=== PATIENT | female | born 1965 | race Caucasian/White ===

== ENCOUNTER 2016-05-30 15:56 | Emergency (ER) | payer OTHER ==
[~2016-05-30] VITALS: Ht 170.2 cm; Wt 66.2 kg
--- NOTE | 2016-05-30 17:11 | ED GENERAL ADULT ---
History of Present Illness General Chief Complaint: General Adult Stated Complaint: PTNOT WELL FOR 1XWK,STOMACH PAIN ,CHEST PAIN,FEVER Source: patient, old records Exam Limitations: no limitations Vital Signs & Intake/Output Vital Signs & Intake/Output Vital Signs Date Time Temp Pulse Resp B/P Pulse O2 O2 Flow FiO2 Ox Delivery Rate 05/31 1947 87 134/80 05/30 1826 98.7 89 16 136/84 97 Room Air 05/30 1602 100.4 97 20 151/94 97 Room Air Allergies Coded Allergies: No Known Allergies (05/30/16) Reconcile Medications Diazepam 10 MG TABLET 2-3 TAB PO DAILY PRN ANXIETY (Reported) Dicyclomine Hydrochloride (Bentyl) 10 MG CAPSULE 1 CAP PO TID PRN abdominal pain Meloxicam 15 MG TABLET 1 TAB PO DAILY PAIN/INFLAMMATION (Reported) Pantoprazole Sodium (Protonix) 40 MG TABLET.DR 1 TAB PO DAILY upper abdominal pain Triage Note: TRIAGE: PT TO ER C/C PAIN TO L CHEST, BACK, MID CHEST SINCE SUNDAY. REPORTS CONSTANT PRESSURE SINCE ONSET WITH INTERMITTENT "WAVES" OF MORE SEVERE PAIN. ALSO COMPLAINS OF PAIN TO LLQ AND ACROSS LOW ABD. DENIES SOB, DENIES DIAPHORESIS, +NAUSEA, -VOMITING, -DIARRHEA. LNBM YESTERDAY. DENIES URINARY S/S. SENT TO [place] FOR EKG. Triage Nurses Notes Reviewed? yes HPI: Patient is a 50-year-old female presents complaining of epigastric pain and diffuse lower abdominal pain. Pain for approximately 5-6 days. Pain in the upper abdomen as a fullness sensation, no exacerbating or alleviating factors. Pain is currently moderate, has been severe at times. No improvement with Tylenol or Motrin. Patient has also tried taking Tums and started taking Nexium yesterday with no improvement. Pain in the lower abdomen is exacerbated by walking. Fevers noticed today. Positive nausea. Pain does not appear to change with eating. Denies vomiting or diarrhea. (AMEE PRADHAN) Past History Travel History Traveled to [place] past 21 day No Medical History Any Pertinent Medical History? 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 No (AMEE PRADHAN) Review of Systems Review of Systems Constitutional: Reports: fever. Denies: chills. EENTM: Reports: no symptoms. Respiratory: Denies: cough, short of breath. Cardiovascular: Reports: no symptoms. GI: Reports: see HPI. Genitourinary: Denies: dysuria, hematuria, pain. Musculoskeletal: Reports: no symptoms. Skin: Reports: no symptoms. Neurological/Psychological: Reports: no symptoms. Hematologic/Endocrine: Reports: no symptoms. Immunologic/Allergic: Reports: no symptoms. (AMEE PRADHAN) Physical Exam Physical Exam General Appearance: well developed/nourished, alert, awake Head: atraumatic, normal appearance Eyes: Bilateral: normal appearance, PERRL, EOMI. Ears, Nose, Throat: normal pharynx, normal ENT inspection, hearing grossly normal Neck: normal inspection, supple, full range of motion Respiratory: normal breath sounds, chest non-tender, no respiratory distress Cardiovascular: regular rate/rhythm Gastrointestinal: normal bowel sounds, soft, MILD EPIGASTRIC TENDERNESS, NEGATIVE Patel SIGN. pOSITIVE LEFT LOWER QUADRANT TENDERNESS. nEGATIVE mCbURNEY'S POINT TENDERNESS. Back: normal inspection, normal range of motion Extremities: normal inspection, normal capillary refill, normal range of motion Neurologic/Psych: no motor/sensory deficits, awake, alert, oriented x 3, normal gait, normal mood/affect Skin: intact, normal color, warm/dry Lymphatic: no anterior cervical nahed Core Measures ACS in differential dx? No CVA/TIA Diagnosis: No Severe Sepsis Present: No Septic Shock Present: No (AMEE PRADHAN) Progress Differential Diagnoses I considered the following diagnoses in my evaluation of the patient: GERD, pancreatitis, biliary colic, cholecystitis, AAA, aortic dissection, diverticulitis, colitis, IBS Plan of Care: Orders Procedure Date/time Status URINALYSIS 05/30 1725 Complete LIPASE 05/30 1725 Complete LACTIC ACID 05/30 172 Complete COMPREHENSIVE METABOLIC PANEL 05/30 1725 Complete CBC WITHOUT DIFFERENTIAL 05/30 1725 Complete AMYLASE 05/30 1725 Complete EKG 05/30 1605 Active Laboratory Tests 05/30/165: Lactic Acid Cancelled 05/30/16 1735: Anion Gap 12, Estimated GFR > 60, BUN/Creatinine Ratio 15.7, Glucose 86, Lactic Acid 0.7, Calcium 10.0, Total Bilirubin 1.0, AST 17, ALT 29, Alkaline Phosphatase 50, Total Protein 7.9, Albumin 4.8, Globulin 3.1, Albumin/Globulin Ratio 1.5, Amylase 74, Lipase 91, CBC w Diff NO MAN DIFF REQ, RBC 4.05 L, MCV 97.2, MCH 32.8 H, RDW 12.3, MPV 8.4, Gran % 70.1, Lymphocytes % 24.2, Monocytes % 4.5, Eosinophils % 0.9, Basophils % 0.3, Absolute Granulocytes 4.9, Absolute Lymphocytes 1.7, Absolute Monocytes 0.3, Absolute Eosinophils 0.1, Absolute Basophils 0, PUBS MCHC 33.8, Urinalysis LIGHT H, Urine Color YEL, Urine Clarity CLEAR, Urine pH 6.0, Ur Specific [place] 1.010, Urine Protein NEG, Urine Ketones 15 H, Urine Nitrite NEG, Urine Bilirubin NEG, Urine Urobilinogen 0.2, Ur Leukocyte Esterase NEG, Ur Microscopic SEDIMENT EXAMINED, Urine RBC 1-3, Urine WBC RARE, Ur Epithelial Cells FEW, Urine Hemoglobin MOD H, Urine Glucose NEG 05/30/2016 7:22:54 PM: Patient reports that her epigastric discomfort significantly improved after GI cocktail. Continues with the lower abdominal discomfort. Results of labs and CT scan discussed with patient. 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 Advised patient to call tomorrow to see if she can get an earlier appointment and to also follow up with her primary care doctor. (RADHA MILLIGAN,AMEE) Diagnostic Imaging: Viewed by Me: CT Scan. Discussed w/RAD: CT Scan. Radiology Impression: PATIENT: AUBREY LAGOS PRESENT AGE: 50 PATIENT ACCOUNT NO: [id number] : 65 LOCATION: [facility] ORDERING PHYSICIAN: AMEE MILLIGAN SERVICE DATE: 05/30/16 EXAM TYPE: CAT - CT ABD & PELVIS W IV CONTRAST EXAMINATION: CT ABDOMEN AND PELVIS WITH CONTRAST CLINICAL INFORMATION: Epigastric pain and diffuse lower abdominal pain. Rule out intra-abdominal infection. COMPARISON: None TECHNIQUE: Multidetector volumetric imaging was performed of the abdomen and pelvis before and after the IV administration of 95 mL of Omnipaque 320 intravenous contrast. Sagittal and coronal reformatted images were obtained on the technologist's workstation. DLP: 280.54 mGy-cm FINDINGS: The lung bases are clear. There are no pleural effusions. The spleen, pancreas, and adrenal glands are normal. The gallbladder is incompletely distended. There is no intrahepatic biliary ductal dilatation. A very small 5 mm low-density focus in the right hepatic lobe superiorly is nonspecific and too small to characterize, possibly representing a cyst. There are subcentimeter low density foci in the both kidneys which are too small to characterize and may also represent cysts. The nephrograms are otherwise symmetric without surrounding inflammatory change. No hydronephrosis or nephrolithiasis is seen. No free air or free fluid is seen. The bladder is distended without wall thickening. The uterus and adnexa appear normal. A 2 cm right-sided follicular cyst is visualized. There is no evidence of bowel obstruction. No pericolonic inflammatory change or diverticular disease is seen. No large bowel wall thickening is noted the appendix is normal. There is no bulky retroperitoneal adenopathy. The abdominal aorta is normal in caliber. No abdominal or inguinal wall hernia is seen. No discrete fluid collection is identified. No acute osseous abnormality is visible. There is mild lower lumbar facet arthropathy. No inguinal adenopathy is seen. IMPRESSION: No acute intra- abdominal or pelvic process to explain the patient's presenting symptoms. No adenopathy or drainable fluid collection. DICTATED BY: JOANN KHANNA MD DATE/ TIME DICTATED:05/30/161904 HYBRID DERIVATIVES TRADER:KATARINA DATE/TIME TRANSCRIBED: 05/30/161904 CONFIDENTIAL, DO NOT COPY WITHOUT APPROPRIATE AUTHORIZATION. < Electronically signed in Other Vendor System> SIGNED BY: JOANN KHANNA MD 05/30/161914 Initial ED EKG: normal axis, normal intervals, normal p-waves, normal QRS complex, normal sinus rhythm, no ST T wave changes (AMEE PRADHAN) Departure Departure Time of Disposition: 1930 Disposition: HOME OR SELF CARE Condition: Stable Clinical Impression Primary Impression: Abdominal pain Qualifiers: Abdominal location: unspecified location Qualified Code: R10.9 - Unspecified abdominal pain Secondary Impressions: GERD (gastroesophageal reflux disease) Qualifiers: Esophagitis presence: esophagitis presence not specified Qualified Code: K21.9 - Gastro-esophageal reflux disease without esophagitis Referrals: MADINA REYES MD (PCP/Family) Additional Instructions: Follow up with your primary doctor and/or your GI doctor within 1 week for further evaluation. Return to the ER if fevers, unable to stay hydrated, pain uncontrollable or worsening of symptoms. Departure Forms: Customer Survey General Discharge Information Prescriptions: Current Visit Scripts Pantoprazole Sodium (Protonix) 1 TAB PO DAILY #14 TAB Dicyclomine Hydrochloride (Bentyl) 1 CAP PO TID PRN abdominal pain #12 CAP (AMEE PRADHAN) PA/HEATING AND VENTILATING TENDER Co-Sign Statement Statement: ED Attending supervision documentation- [] I saw and evaluated the patient. I have also reviewed all the pertinent lab results and diagnostic results. I agree with the findings and the plan of care as documented in the PA's/HEATING AND VENTILATING TENDER's documentation. [X] I have reviewed the ED Record and agree with the PA's/HEATING AND VENTILATING TENDER's documentation. [] Additions or exceptions (if any) to the PAs/HEATING AND VENTILATING TENDER's note and plan are summarized below: [] (SONIA MICHELLE,JOANN Guillen) Critical Care Note Critical Care Note Critical Care Time: non-applicable (AMEE PRADHAN)
[2016-05-30 18:01] LABS: ABSOLUTE BASOPHIL COUNT 0 /CUMM (0.0-0.2); ABSOLUTE EOSINOPHIL COUNT 0.1 /CUMM (0.0-0.7); ABSOLUTE GRANULOCYTE CT 4.9 /CUMM (1.4-6.5); ABSOLUTE LYMPH COUNT 1.7 /CUMM (1.2-3.4); ABSOLUTE MONOCYTE COUNT 0.3 /CUMM (0.10-0.60); BASOPHIL % 0.3 % (0.0-2.0); EOSINOPHIL % 0.9 % (0-5); GRANULOCYTE % 70.1 % (42.2-75.2); HEMATOCRIT 39.3 % (37-47); MEAN CORPUSCULAR HGB 32.8 PG (27.0-31.0); MEAN CORPUSCULAR HGB CONC 33.8 G/DL (33.0-37.0); MEAN CORPUSCULAR VOLUME 97.2 FL (81.0-99.0); MEAN PLATELET VOLUME 8.4 FL (7.4-10.4); PLATELET COUNT 271 /CUMM (130-400); RBC DISTRIBUTION WIDTH 12.3 % (11.5-14.5); RED BLOOD CELL CT 4.05 /CUMM (4.20-5.40)
[2016-05-30] MEDS ORDERED: MELOXICAM15 M1 PO (18:41)
[2016-05-30] MEDS ORDERED: DIAZEPAM10 M1 PO (18:41)
--- NOTE | 2016-05-30 19:15 | CT SCAN REPORT ---
EXAMINATION: CT ABDOMEN AND PELVIS WITH CONTRAST CLINICAL INFORMATION: Epigastric pain and diffuse lower abdominal pain. Rule out intra-abdominal infection. COMPARISON: None TECHNIQUE: Multidetector volumetric imaging was performed of the abdomen and pelvis before and after the IV administration of 95 mL of Omnipaque 320 intravenous contrast. Sagittal and coronal reformatted images were obtained on the technologist's workstation. DLP: 280.54 mGy-cm FINDINGS: The lung bases are clear. There are no pleural effusions. The spleen, pancreas, and adrenal glands are normal. The gallbladder is incompletely distended. There is no intrahepatic biliary ductal dilatation. A very small 5 mm low-density focus in the right hepatic lobe superiorly is nonspecific and too small to characterize, possibly representing a cyst. There are subcentimeter low density foci in the both kidneys which are too small to characterize and may also represent cysts. The nephrograms are otherwise symmetric without surrounding inflammatory change. No hydronephrosis or nephrolithiasis is seen. No free air or free fluid is seen. The bladder is distended without wall thickening. The uterus and adnexa appear normal. A 2 cm right-sided follicular cyst is visualized. There is no evidence of bowel obstruction. No pericolonic inflammatory change or diverticular disease is seen. No large bowel wall thickening is noted the appendix is normal. There is no bulky retroperitoneal adenopathy. The abdominal aorta is normal in caliber. No abdominal or inguinal wall hernia is seen. No discrete fluid collection is identified. No acute osseous abnormality is visible. There is mild lower lumbar facet arthropathy. No inguinal adenopathy is seen. IMPRESSION: No acute intra-abdominal or pelvic process to explain the patient's presenting symptoms. No adenopathy or drainable fluid collection.
[2016-05-30] MEDS ORDERED: BENTYL10 M1 PO (19:33)
[2016-05-30] MEDS ORDERED: PROTONIX40 M3 PO (19:33)
[2016-05-30 19:48] VITALS: BP 134/80
== END 2016-05-30 19:49 ==
LOC: ERH 15:56
PROVIDERS: Physician Assistant
DX: K21.9 Gastro-esophageal reflux disease without esophagitis (principal); R07.9 Chest pain, unspecified; R50.9 Fever, unspecified
CPT/HCPCS: 74177; 81001; 93005; 93010